=== PATIENT | female | born 1960 | race American Indian/Alaskan Native ===

== ENCOUNTER 2017-10-05 08:34 | Emergency (ER) | payer OTHER ==
[2017-10-05 08:38] VITALS: BP 133/85; PULSE 77; RESP 21; TEMP 98.4; O2SAT 100
--- NOTE | 2017-10-05 08:50 | ED PDOC ---
Lower Extremity Pain/Injury Time Seen by Provider: 10/05/17 08:35 Chief Complaint (Nursing): Lower Extremity Problem/Injury History Per: Patient ([place] to right knee and right upper ext. No heasd or neck injury) Onset/Duration Of Symptoms: Hrs (1) Current Symptoms Are (Timing): Still Present Severity: Mild Pain Scale Rating Of: 1 Past Medical History Vital Signs: Last Vital Signs Temp 98.4 F 10/05/17 08:37 Pulse 77 10/05/17 08:37 Resp 21 10/05/17 08:37 BP 133/85 10/05/17 08:37 Pulse Ox 100 10/05/17 08:37 - Medical History PMH: No Chronic Diseases - Family History Family History: States: Unknown Family Hx - Home Medications Home Medications: Ambulatory Orders Medication Instructions Recorded Naproxen [Naprosyn] 500 mg PO Q12H #20 tab 10/05/17 - Allergies Allergies/Adverse Reactions: Allergies Allergy/AdvReac Type Severity Reaction Status Date / Time No Known Allergies Allergy Verified 10/05/17 08:47 Review of Systems Musculoskeletal: Positive for: Arm Pain, Leg Pain Neurological: Negative for: Weakness, Numbness Physical Exam - Physical Exam Appears: Positive for: Non-toxic, No Acute Distress Head Exam: Positive for: ATRAUMATIC, NORMAL INSPECTION, NORMOCEPHALIC Skin: Positive for: Normal Color, Warm, DRY Extremity: Positive for: Other (Right knee, no swelling or defor,ity FROM. Right elbow, no swelling or deformity FROM) Neurologic/Psych: Positive for: Alert, Oriented. Negative for: Motor/Sensory Deficits - ECG O2 Sat by Pulse Oximetry: 100 Disposition - Clinical Impression Clinical Impression: Sprain - Patient ED Disposition Is Patient to be Admitted: No Counseled Patient/Family Regarding: Studies Performed, Diagnosis, Need For Followup, Rx Given - Disposition Referrals: [facility] [Outside] Disposition: Routine/Home Disposition Time: 09:57 Condition: FAIR Prescriptions: Naproxen [Naprosyn] 500 mg PO Q12H #20 tab Instructions: Knee Sprain (ED) Forms: [employer] ([place])
--- NOTE | 2017-10-05 10:04 | RAD ---
PROCEDURE: Radiographs of the right elbow. HISTORY: trauma COMPARISON: No prior. FINDINGS: BONES: Normal. No fracture. JOINTS: Normal. No osteoarthritis. SOFT TISSUES: Normal. JOINT EFFUSION: None. OTHER FINDINGS: None. IMPRESSION: Unremarkable radiographs of the right elbow.
--- NOTE | 2017-10-05 10:06 | RAD ---
PROCEDURE: Right Knee Radiographs. HISTORY: trauma COMPARISON: None available FINDINGS: BONES: Normal. No fracture. JOINTS: Normal. No osteoarthritis. JOINT EFFUSION: None. OTHER FINDINGS: None. IMPRESSION: Normal radiographs of the right knee.
== END 2017-10-05 10:45 | disposition home or self-care (01) ==
LOC: H.ER 08:34
DX: S83.91XA Sprain of unspecified site of right knee, initial encounter (principal); W01.0XXA Fall on same level from slipping, tripping and stumbling without subsequent striking against object, initial encounter; Y93.9 Activity, unspecified; Y92.522 Railway station as the place of occurrence of the external cause